=== PATIENT | female | born 1990 | race Caucasian/White ===

== ENCOUNTER 2016-11-20 20:07 | Emergency (ER) | payer OTHER ==
[~2016-11-20] VITALS: Ht 165.1 cm; Wt 72.6 kg
--- NOTE | ~2016-11-20 | EKG ---
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 No previous ECG available for comparison Electronically Signed On 11-21-2016 11:26:02 CDT by Eduard Zambrano [email or web address] <ELECTRONICALLY SIGNED> By: Eduard Zambrano MD 11/21/16 1126 11 11 Eduard Zambrano MD /EPI
--- NOTE | ~2016-11-20 | EKG ---
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
[~2016-11-20 20:07] MED LIST: ACYCLOVIR 400400 MG PO; IBUPROFEN 200200 M1 PO; MULTIVITAMINS1 EAC7 PO
[2016-11-20 20:35] LABS: ABSOLUTE NEUTROPHILS 6.6 thou/uL (1.4-8.2); BASOPHILS 0.7 % (0.0-2.0); EOSINOPHILS 1.6 % (0.0-3.0); HEMATOCRIT 41.3 % (37.0-47.0); HEMOGLOBIN 14.6 gm/dL (12.0-15.0); LYMPHOCYTES 35.3 % (24.0-44.0); MCH 30.7 pg (26.0-34.0); MCHC 35.3 g/dL (28.0-37.0); MCV 87.1 fL (80.0-100.0); MONOCYTES 6.1 % (1.0-8.0); PLATELET COUNT 331 thou/uL (150-400); POLYS 56.3 % (36.0-66.0); RBC 4.74 mil/uL (4.20-5.00); RDW 13.1 % (10.5-14.5); WBC 11.8 thou/uL (4.0-11.0)
[2016-11-20 20:38] LABS: MANUAL DIFF NO
[2016-11-20 20:46] LABS: ANION GAP 18 mmol/L (7-16); BUN 10 mg/dL (7-18); CHLORIDE 103 mmol/L (98-107); CO2 19 mmol/L (21-32); CREATININE 0.9 mg/dL (0.6-1.3); GLUCOSE 125 mg/dL (70-99); SODIUM 140 mmol/L (136-145)
[2016-11-20 20:55] LABS: ALKALINE PHOSPHATASE 111 U/L (46-116); SGOT 22 U/L (15-37); SGPT 25 U/L (30-65); TOTAL BILIRUBIN 0.4 mg/dL (<0.1-1.0)
[2016-11-20 20:56] LABS: ALBUMIN 4.1 g/dL (3.4-5.0); TROPONIN-I < 0.04 ng/mL (<0.04-0.07)
[2016-11-20 21:11] LABS: URINE BILIRUBIN NEGATIVE (Negative); URINE BLOOD NEGATIVE (Negative); URINE COLOR YELLOW; URINE GLUCOSE-RANDOM* NEGATIVE (Negative); URINE KETONES TRACE (Negative); URINE LEUKOCYTES-REFLEX NEGATIVE (Negative); URINE PROTEIN (DIPSTICK) NEGATIVE (Negative); URINE SPECIFIC GRAVITY 1.025 (1.003-1.035); URINE UROBILINOGEN 0.2 E.U./dl (0.2-1.0)
[2016-11-20 21:16] LABS: AMP/METHAMP Negative (Negative); BARBITURATES Negative (Negative); BENZODIAZEPINES Negative (Negative); COCAINE Negative (Negative); METHADONE Negative (Negative); OPIATES Negative (Negative); PCP Negative (Negative); THC Negative (Negative)
[2016-11-20 23:43] VITALS: BP 100/65
== END 2016-11-21 00:06 | disposition home or self-care (01) ==
LOC: ER 20:07
PROVIDERS: Emergency Medicine
DX: F41.9 Anxiety disorder, unspecified (principal); E87.6 Hypokalemia; R11.2 Nausea with vomiting, unspecified; R00.0 Tachycardia, unspecified

== ENCOUNTER 2018-04-07 18:50 | Emergency (ER) | payer OTHER ==
[~2018-04-07] VITALS: Ht 165.1 cm; Wt 81.2 kg
--- NOTE | ~2018-04-07 | EKG ---
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
[2018-04-07 20:17] LABS: ABSOLUTE NEUTROPHILS 6.1 thou/uL (1.4-8.2); BASOPHILS 0.3 % (0.0-2.0); EOSINOPHILS 2.2 % (0.0-3.0); HEMATOCRIT 44.4 % (37.0-47.0); HEMOGLOBIN 15.4 gm/dL (12.0-15.0); LYMPHOCYTES 25.1 % (24.0-44.0); MCH 31.1 pg (26.0-34.0); MCHC 34.7 g/dL (28.0-37.0); MCV 89.6 fL (80.0-100.0); PLATELET COUNT 267 thou/uL (150-400); POLYS 67.4 % (36.0-66.0); RBC 4.96 mil/uL (4.20-5.00); RDW 13.8 % (10.5-14.5)
[2018-04-07 20:24] LABS: ANION GAP 9 mmol/L (7-16); BUN 8 mg/dL (7-18); CALCIUM 9.5 mg/dL (8.5-10.1); CHLORIDE 103 mmol/L (98-107); CO2 26 mmol/L (21-32); CREATININE 0.7 mg/dL (0.6-1.0); GLUCOSE 99 mg/dL (74-106); POTASSIUM 3.6 mmol/L (3.5-5.1); SODIUM 138 mmol/L (136-145)
[2018-04-07 20:35] LABS: TROPONIN-I <0.06 ng/mL (<0.06)
[2018-04-07] MEDS ORDERED: LISINOPRIL5 MG PO (21:12)
[2018-04-07] MEDS ORDERED: PROCARDIA10 MG PO (21:53)
[2018-04-07 21:55] VITALS: BP 130/98
== END 2018-04-07 21:57 | disposition home or self-care (01) ==
LOC: ER 18:50
PROVIDERS: Physician Assistant
DX: I10 Essential (primary) hypertension (principal); J45.909 Unspecified asthma, uncomplicated

== ENCOUNTER 2018-05-24 21:23 | Emergency (ER) | payer OTHER ==
[~2018-05-24] VITALS: Ht 165.1 cm; Wt 78.5 kg
[~2018-05-24 21:23] MED LIST changes: +LISINOPRIL5 MG PO; +METROPOLOL PO; +PROCARDIA10 MG PO; +REGLAN 10 MG TA10 MG PO; +SYMBICORT80 MCG/4.1 INH
[2018-05-24] MEDS ORDERED: ATIVAN1 MG PO (23:05)
[2018-05-24] MEDS ORDERED: ALBUTEROL2.5 MG/31 INH (23:05)
[2018-05-24 23:26] VITALS: BP 133/81
== END 2018-05-24 23:27 | disposition home or self-care (01) ==
LOC: ER 21:23
DX: J45.909 Unspecified asthma, uncomplicated (principal); F41.9 Anxiety disorder, unspecified; J18.9 Pneumonia, unspecified organism; G43.909 Migraine, unspecified, not intractable, without status migrainosus

== ENCOUNTER 2018-06-26 18:28 | Emergency (ER) | payer OTHER ==
[~2018-06-26] VITALS: Ht 165.1 cm; Wt 80.7 kg
--- NOTE | ~2018-06-26 | EKG ---
[address] [address] [facility] [place] [address] ELECTROCARDIOGRAM REPORT Name: THEODORE MCCONNELL [facility] [id number] Admission: 06/26/18 Attend Phys: Discharge: 06/26/18 Date of : [birth year] Report #: [id number] THIS REPORT FOR: //name// 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
[~2018-06-26 18:28] MED LIST changes: +ALBUTEROL2.5 MG/31 INH; +ATIVAN1 MG PO
[2018-06-26] MEDS ORDERED: ACCUNEB SO1.25 MG/1 INH (18:36)
[2018-06-26 19:48] LABS: ABSOLUTE NEUTROPHILS 5.3 thou/uL (1.4-8.2); BASOPHILS 0.6 % (0.0-2.0); EOSINOPHILS 2.2 % (0.0-3.0); HEMATOCRIT 37.8 % (37.0-47.0); HEMOGLOBIN 13.2 gm/dL (12.0-15.0); LYMPHOCYTES 26.4 % (24.0-44.0); MCH 31.8 pg (26.0-34.0); MCHC 34.9 g/dL (28.0-37.0); MCV 91.1 fL (80.0-100.0); MONOCYTES 6.2 % (1.0-8.0); PLATELET COUNT 273 thou/uL (150-400); POLYS 64.6 % (36.0-66.0); RBC 4.14 mil/uL (4.20-5.00); RDW 14.6 % (10.5-14.5); WBC 8.2 thou/uL (4.0-11.0)
[2018-06-26 19:55] LABS: CALCIUM 9.6 mg/dL (8.5-10.1); CREATININE 0.6 mg/dL (0.6-1.0); POTASSIUM 3.8 mmol/L (3.5-5.1)
[2018-06-26 19:59] LABS: ALBUMIN 3.7 g/dL (3.4-5.0); TOTAL BILIRUBIN 0.2 mg/dL (<0.1-1.0); TOTAL PROTEIN 7.6 g/dL (6.4-8.2)
[2018-06-26] MEDS ORDERED: CLOTRIMAZOLE10 MG PO (21:23)
[2018-06-26] MEDS ORDERED: FLAGYL500 MG PO (21:23)
[2018-06-26 21:53] VITALS: BP 126/88
== END 2018-06-26 21:54 | disposition home or self-care (01) ==
LOC: ER 18:28
PROVIDERS: Physician Assistant
DX: N76.0 Acute vaginitis (principal); B96.89 Other specified bacterial agents as the cause of diseases classified elsewhere; B37.0 Candidal stomatitis; R06.02 Shortness of breath; J45.909 Unspecified asthma, uncomplicated; G43.909 Migraine, unspecified, not intractable, without status migrainosus